=== PATIENT | female | born 1950 | race Two or more races ===

== ENCOUNTER 2024-02-03 15:56 | Emergency (ER) | payer OTHER ==
[~2024-02-03 15:56] MED LIST: IBU600T PO
[2024-02-03] MEDS: KETAMINE 50mg/ML 10ml Vial 10 ML ONE (22:24)
[2024-02-03 22:37] VITALS: PULSE 81; RESP 13; O2SAT 99
[2024-02-03] MEDS: KETAMINE 50mg/ML 1ml syringe IV ONE (22:52)
[2024-02-04 00:07] VITALS: BP 155/72; PULSE 84; RESP 12; O2SAT 97
== END 2024-02-04 00:37 | disposition home or self-care (01) ==
LOC: ER 15:56
DX: S43.084A Other dislocation of right shoulder joint, initial encounter (principal); I10 Essential (primary) hypertension; E11.9 Type 2 diabetes mellitus without complications; Z79.899 Other long term (current) drug therapy; X58.XXXA Exposure to other specified factors, initial encounter; Y93.89 Activity, other specified; Y92.89 Other specified places as the place of occurrence of the external cause; Y99.8 Other external cause status
CPT/HCPCS: 23650; 73030; 99152

== ENCOUNTER 2024-02-08 19:55 | Emergency (ER) | payer OTHER ==
[~2024-02-08] VITALS: Ht 160 cm; Wt 101.3 kg
[2024-02-08] MEDS: PROPOFOL 10 MG/ML 20 ML IV ONE (02:30)
[2024-02-09 03:30] VITALS: BP 160/67; PULSE 77; RESP 20; TEMP 98.2; O2SAT 95
== END 2024-02-09 03:44 | disposition home or self-care (01) ==
LOC: ER 19:55
DX: S43.004A Unspecified dislocation of right shoulder joint, initial encounter (principal); I10 Essential (primary) hypertension; X50.9XXA Other and unspecified overexertion or strenuous movements or postures, initial encounter; Y93.89 Activity, other specified; Y92.89 Other specified places as the place of occurrence of the external cause; Y99.8 Other external cause status
CPT/HCPCS: 23650; 73020; 73030; 73060; 73070; 99152; 99285; J2704; 96374